=== PATIENT | male | born 1940 | race Caucasian/White ===

== ENCOUNTER 2017-04-19 17:02 | Emergency (ER) | payer MEDICARE ==
[~2017-04-19] VITALS: Ht 165.1 cm; Wt 66.0 kg
[2017-04-19 17:04] VITALS: BP 129/61; PULSE 88; RESP 18; TEMP 97.7; O2SAT 95
--- NOTE | 2017-04-19 18:06 | RADRPT ---
EXAM DATE/TIME: 04/19/2017 17:54 [place] COMPARISON: No previous studies available for comparison. INDICATIONS : Short of breath. MEDICAL HISTORY : Chronic obstructive pulmonary disease. SURGICAL HISTORY : None. ENCOUNTER: Initial ACUITY: 1 week PAIN SCORE: 0/10 LOCATION: Bilateral chest FINDINGS: PA and lateral views of the chest demonstrate the lungs to be symmetrically aerated without evidence of mass, infiltrate or effusion. The cardiomediastinal contours are unremarkable. Osseous structure s are intact. CONCLUSION: Normal examination. Hitesh Todd MD on April 19, 2017 at 18:04 Board Certified Radiologist. This report was verified electronically.
[2017-04-19 20:16] LABS: BASOPHIL % 0.5 % (0.0-2.0); EOSINOPHIL % 0.2 % (0.0-4.0); HEMATOCRIT 39.2 % (39.0-51.0); LYMPH % 18.2 % (9.0-44.0); LYMPHOCYTE # 1.1 TH/MM3 (1.0-4.8); MEAN CORPUSCULAR HEMOGLOBIN 32.6 PG (27.0-34.0); MEAN CORPUSCULAR HGB CONC 35.8 % (32.0-36.0); MEAN PLATELET VOLUME 7.7 FL (7.0-11.0); MONO % 16.2 % (0.0-8.0); NEUT % 64.9 % (16.0-70.0); PLATELET COUNT 295 TH/MM3 (150-450); RED BLOOD COUNT 4.31 MIL/MM3 (4.50-5.90); RED CELL DISTRIBUTION WIDTH 13.6 % (11.6-17.2); WHITE BLOOD COUNT 6.2 TH/MM3 (4.0-11.0)
[2017-04-19 20:22] LABS: ALBUMIN 3.7 GM/DL (3.4-5.0); ALT (GPT) 39 U/L (12-78); AST (GOT) 41 U/L (15-37); BICARBONATE 27.4 MEQ/L (21.0-32.0); BLOOD UREA NITROGEN 21 MG/DL (7-18); CALCIUM 8.6 MG/DL (8.5-10.1); CHLORIDE 97 MEQ/L (98-107); GLOMERULAR FILTRATION RATE 54 ML/MIN (>89); GLUCOSE,RANDOM 104 MG/DL (74-106); SODIUM (NA) 132 MEQ/L (136-145)
[2017-04-19 20:25] LABS: ALKALINE PHOSPHATASE 83 U/L (45-117); TOTAL BILIRUBIN ADULT 0.3 MG/DL (0.2-1.0); TOTAL PROTEIN 7.7 GM/DL (6.4-8.2)
--- NOTE | 2017-04-19 21:37 | PD ---
HPI . Respiratory symptoms Chief Complaint: Respiratory Symptoms Time Seen by Provider: 21:37 Travel History International Travel<30 days: No Contact w/Intl Traveler<30days: No Traveled to known affect area: No History of Present Illness HPI Patient brought to room at 2137 76-year-old male complains of having generalized weakness and malaise not feeling well today, notes respiratory distress, however is not complaining of any wheezing coughing air hunger. Patient notes having these symptoms since a bout of diarrhea that he had approximately 2 weeks ago that lasted for several days which patient states he became very dehydrated and hasn't rebounded well since. Patient takes prednisone 5 mg daily for COPD, and missed some doses perhaps he thinks. Denies fever chills sweats, headache visual changes neck pain stiffness, chest pain, abdominal pain, nausea vomiting, diarrhea has subsided from his episode 2 weeks ago, no leg swelling or pain, no foreign travel or sedentary period. PFSH Past Medical History Narrative Medical Past medical history reviewed Social History Alcohol Use: No Tobacco Use: No Substance Use: No Allergies-Medications (Allergen,Severity, Reaction): Coded Allergies: Sulfa (Sulfonamide Antibiotics) (Verified Allergy, Unknown, 04/19/17) Narrative Medication Allergies and medications reviewed Review of Systems Except as stated in HPI: all other systems reviewed are Neg General / Constitutional: No: Fever Eyes: No: Visual changes HENT: No: Headaches Cardiovascular: No: Chest Pain or Discomfort Respiratory: No: Shortness of Breath Gastrointestinal: No: Abdominal Pain Genitourinary: No: Dysuria Musculoskeletal: No: Pain Skin: No Rash Neurologic: No: Weakness Psychiatric: No: Depression Endocrine: No: Polydipsia Hematologic/Lymphatic: No: Easy Bruising Physical Exam Narrative GENERAL: Awake alert oriented 3 no acute distress SKIN: Warm and dry. Color is slightly sallow no cyanosis diaphoresis or pallor HEAD: Atraumatic. Normocephalic. EYES: Pupils equal and round. No scleral icterus. No injection or drainage. ENT: No nasal bleeding or discharge. Mucous membranes pink and moist. NECK: Trachea midline. No JVD. Supple full range of motion CARDIOVASCULAR: Regular rate and rhythm. S1-S2 no murmurs or gallops RESPIRATORY: No accessory muscle use. Clear to auscultation. Breath sounds equal bilaterally. GASTROINTESTINAL: Abdomen soft, non-tender, nondistended. Hepatic and splenic margins not palpable. MUSCULOSKELETAL: Extremities without clubbing, cyanosis, or edema. No obvious deformities. NEUROLOGICAL: Awake and alert. No obvious cranial nerve deficits. Motor grossly within normal limits. Five out of 5 muscle strength in the arms and legs. Normal speech. PSYCHIATRIC: Appropriate mood and affect; insight and judgment normal. Data Data Last Documented VS Vital Signs Date Time Temp Pulse Resp B/P (MAP) Pulse Ox O2 Delivery O2 Flow Rate FiO2 04/19/17 17:04 97.7 88 18 129/61 (83) 95 Room Air Orders Orders Complete Blood Count With Diff (04/19/17 17:42) Comprehensive Metabolic Panel (04/19/17 17:42) Lactic Acid Sepsis Protocol (04/19/17 17:42) Chest, Pa & Lat (04/19/17 17:42) Magnesium (Mg) (04/19/17 21:39) Sodium Chlor 0.9% 250 Ml Inj (Ns 250 Ml (04/19/17 21:45) Potassium Chloride (Kcl) (04/19/17 21:45) Methylprednisolone So Succ Inj (Solumedr (04/19/17 21:45) Sodium Chlor 0.9% 1000 Ml Inj (Ns 1000 M (04/19/17 23:45) Albuterol-Ipratropium Neb (Duoneb Neb) (04/19/17 23:45) D-Dimer (04/19/17 23:43) Basic Metabolic Panel (Bmp) (04/20/17 02:00) Labs Laboratory Tests Test 04/19/17 19:40 04/19/17 21:50 04/20/17 00:15 04/20/17 02:05 White Blood Count 6.2 TH/MM3 Red Blood Count 4.31 MIL/MM3 Hemoglobin 14.0 GM/DL Hematocrit 39.2 % Mean Corpuscular Volume 91.0 FL Mean Corpuscular Hemoglobin 32.6 PG Mean Corpuscular Hemoglobin Concent 35.8 % Red Cell Distribution Width 13.6 % Platelet Count 295 TH/MM3 Mean Platelet Volume 7.7 FL Neutrophils (%) (Auto) 64.9 % Lymphocytes (%) (Auto) 18.2 % Monocytes (%) (Auto) 16.2 % Eosinophils (%) (Auto) 0.2 % Basophils (%) (Auto) 0.5 % Neutrophils # (Auto) 4.0 TH/MM3 Lymphocytes # (Auto) 1.1 TH/MM3 Monocytes # (Auto) 1.0 TH/MM3 Eosinophils # (Auto) 0.0 TH/MM3 Basophils # (Auto) 0.0 TH/MM3 CBC Comment DIFF FINAL Differential Comment Blood Urea Nitrogen 21 MG/DL 18 MG/DL Creatinine 1.30 MG/DL 0.99 MG/DL Random Glucose 104 MG/DL 146 MG/DL Total Protein 7.7 GM/DL Albumin 3.7 GM/DL Calcium Level 8.6 MG/DL 7.6 MG/DL Alkaline Phosphatase 83 U/L Aspartate Amino Transf (AST/SGOT) 41 U/L Alanine Aminotransferase (ALT/SGPT) 39 U/L Total Bilirubin 0.3 MG/DL Sodium Level 132 MEQ/L 137 MEQ/L Potassium Level 3.1 MEQ/L 3.8 MEQ/L Chloride Level 97 MEQ/L 105 MEQ/L Carbon Dioxide Level 27.4 MEQ/L 22.7 MEQ/L Anion Gap 8 MEQ/L 9 MEQ/L Estimat Glomerular Filtration Rate 54 ML/MIN 73 ML/MIN Lactic Acid Level 1.3 mmol/L Magnesium Level 2.2 MG/DL D-Dimer Quantitative (PE/DVT) 0.48 MG/L [facility]U [facility] Medical Decision Making Medical Screen Exam Complete: Yes Emergency Medical Condition: Yes Medical Record Reviewed: Yes Differential Diagnosis Generalized weakness, addisonian crisis, respiratory distress, pulmonary embolus Narrative Course EKG normal sinus rhythm at 72 bpm nonischemic Chest x-ray negative Laboratory examinations reviewed,, patient is severely hyponatremic, hypochloremic. Consistent with patient's history of diarrhea as well as his history of chronically using steroids and potentially not being compliant with same recently, creating a partial addisonian presentation. Patient treated with IV normal saline, IV steroids, patient felt greatly improved. Patient expressed a return of his appetite, was given a full meal with extra salt which patient enjoyed. Repeat laboratory examinations revealed correction of patient' s sodium and chloride. Patient's complaint of generalized malaise and shortness of breath abated. Discharge Diagnosis Primary Impression: Hyponatremia Additional Impression: Addisonian crisis Patient Instructions: General Instructions, Hyponatremia (ED), Weakness (ED) Additional Instructions: Stay well-hydrated, use sports drinks, not free water. Maintain your steroid use, very important exhalation point follow-up with her doctor. Return for worsening Disposition: 01 DISCHARGE HOME Condition: Stable Bimal Hay MD Apr 19, 2017 21:37
[2017-04-19] MEDS ORDERED: methylPREDNISolone SOD SUCC 125 MG/2 ML VIAL IV PUSH ONE (21:45)
[2017-04-19] MEDS ORDERED: POTASSIUM CHLORIDE 20 MEQ CONTROLLED RELEASE TAB PO ONE (21:45)
[2017-04-19] MEDS ORDERED: SODIUM CHLOR 0.9% 250 ML INJ 250 ML IV ONE (21:45)
[2017-04-19] MEDS ORDERED: SODIUM CHLOR 0.9% 1000 ML INJ 1,000 ML IV ONE (23:45)
[2017-04-19] MEDS ORDERED: RESP: ALBUTEROL 2.5 MG/IPRATROPIUM 0.5 MG NEB (SCH) NEB ONE (23:45)
[2017-04-20] VITALS: BP 125/62; PULSE 80; RESP 18; TEMP 98; O2SAT 95
[2017-04-20 03:24] LABS: BICARBONATE 22.7 MEQ/L (21.0-32.0); CALCIUM 7.6 MG/DL (8.5-10.1); CREATININE 0.99 MG/DL (0.60-1.30)
[2017-04-20] MEDS ORDERED: RESP: ALBUTEROL 2.5 MG/IPRATROPIUM 0.5 MG NEB (SCH) NEB ONE (04:15)
[2017-04-20 04:27] VITALS: BP 132/70; TEMP 98
== END 2017-04-20 05:29 | disposition home or self-care (01) ==
LOC: NEPC 17:02
DX: E87.1 Hypo-osmolality and hyponatremia (principal); E27.2 Addisonian crisis; J44.9 Chronic obstructive pulmonary disease, unspecified
CPT/HCPCS: 71046; 80048; 80053; 83605; 83735; 85025; 85379; 94640; 94664; 96361; 96374; 99285; J2930; J7030; J7050